=== PATIENT | male | born 1945 | race Caucasian/White ===

== ENCOUNTER 2017-05-22 09:27 | Emergency (ER) | payer BC ==
[~2017-05-22] VITALS: Ht 177.8 cm; Wt 77.0 kg
[~2017-05-22 09:27] MED LIST: ASPCH81X PO; ATEN-175 PO; CIPR-255 PO; MAGN400T6 PO; OMEG10007 PO
[2017-05-22 09:36] VITALS: TEMP 36.7
[2017-05-22 09:39] VITALS: Ht 177.8 cm; Wt 77.0 kg
[2017-05-22 09:43] VITALS: O2SAT 96
--- NOTE | 2017-05-22 09:43 | EMERGENCY ROOM VISIT NOTE ---
History Report prepared by Hina: Brown Velasquez Under the Supervision of: Dr. Elian Reed D.O. First contact with patient: 09:31 Chief Complaint: LEG PAIN,LEG INJURY Stated Complaint: LEG PAIN History of Present Illness The patient is a 71 year old male who presents to the Emergency Room with complaints of worsening weakness to all four extremities that has been progressing downward for the past 1 year. He states that he has been having "issues" since he fell out of a box truck 7 years ago landing on his face. He has seen multiple surgeons and received multiple tests and scans. He has never been able to find the source of his symptoms. He states that he has a pain from his right druze down into his neck. He also has been having vision blurring, lower extremity numbness, and has been feeling off balance. He notes that his ears are causing him pain as well. He denies any recent falls or injury. He denies any headaches, nausea, vomiting, or rashes. He only takes Atenolol daily. Source of History: patient Onset: 1 year ago Position: other (All four extremities) Symptom Intensity: moderate Quality: other (Generalized weakness) Timing: worsening Associated Symptoms: + numbness, No headache, No nausea, No vomiting Note: He is off balance and is experiencing vision blurring. He denies any trauma or injury. Review of Systems See HPI for pertinent positives & negatives. A total of 10 systems reviewed and were otherwise negative. Past Medical & Surgical Medical Problems: (1) HTN (hypertension) Social History Smoking Status: Current Every Day Smoker Smokeless Tobacco Use: No Drug Use: none Marital Status: Housing Status: lives with significant other Occupation Status: retired Current/Historical Medications Scheduled Aspirin (Aspirin Chewable), 81 MG PO DAILY Atenolol (Tenormin), 100 MG PO DAILY Fish Oil ([place]-3), 1 CAP PO DAILY Magnesium Oxide (Mag-Ox), 400 MG PO DAILY Allergies Coded Allergies: Diazepam (Verified Allergy, Mild, LIGHTHEADED, DIZZY, 05/22/17) Physical Exam Vital Signs Date Time Temp Pulse Resp B/P (MAP) Pulse Ox O2 Delivery O2 Flow Rate FiO2 05/22/17 13:07 62 14 148/78 94 05/22/17 12:56 62 14 148/78 94 Room Air 05/22/17 10:56 73 17 164/83 96 Room Air 05/22/17 09:47 81 05/22/17 09:43 96 Room Air 05/22/17 09:43 96 Room Air 05/22/17 09:36 36.7 83 20 185/90 96 Room Air Physical Exam GENERAL: Patient is awake, alert, and in no acute distress. Patient is resting comfortably and showing no signs of anxiety EYES: The conjunctivae are clear. The pupils are round and reactive. EARS, NOSE, MOUTH AND THROAT: TM's clear bilaterally. The nose is without any evidence of any deformity. Mucous membranes are moist tongue is midline NECK: The neck is nontender and supple. No bruits notes to auscultation. RESPIRATORY: Normal respiratory effort is noted there is no evidence of wheezing rhonchi or rales CARDIOVASCULAR: Regular rate and rhythm noted there no murmurs rubs or gallops normal S1 normal S2 GASTROINTESTINAL: The abdomen is soft. Bowel sounds are present in all quadrants. Abdomen is nontender MUSCULOSKELETAL/EXTREMITIES: There is no evidence of gross deformity full range of motion is noted in the hips and shoulders SKIN: There is no obvious evidence of any rash. There are no petechiae, pallor or cyanosis noted. NEUROLOGIC: Patient is awake alert and oriented x3 strength is symmetric patellar reflexes are 2+ bilaterally Medical Decision & Procedures ER Provider Diagnostic Interpretation: Radiology results as stated below per my review and radiologist interpretation: ANGIOGRAPHY HEAD COMBO CLINICAL HISTORY: 71 years-old Male presenting with right-sided headache, right-sided neck pain, leg pain. TECHNIQUE: Multidetector CT angiography of the head was performed before and after the administration of intravenous contrast. 3-D volumetric and/or maximum intensity projection (MIP) images were subsequently reconstructed for review. IV contrast: 120 mL of Optiray 320. A dose lowering technique was used consistent with the principles of ALARA (as low as reasonably achievable). COMPARISON: CT head from 03/03/2011. CT DOSE (mGy.cm): The estimated cumulative dose is 1204.63 inclusive of the CTA neck. FINDINGS: School Supervisor topogram: Unremarkable. NONCONTRAST CT HEAD: Proportional ventricular and sulcal prominence, likely age-related parenchymal volume loss. Old infarct in the right occipital lobe, unchanged. No mass effect or midline shift. No hemorrhage or acute territorial infarct. Chronic extra-axial thickening at the anterior pole of the left temporal lobe. No commencing evidence of new extra-axial collection. Right mastoidectomy noted. Calvarium intact. CTA HEAD: Atherosclerosis of the bilateral cavernous segments of the internal carotid arteries, which results in less than 50% stenosis, greater on the left. 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 Bilateral anterior and middle cerebral arteries patent. Hypoplastic A1 segment of the left anterior cerebral artery. Posterior circulation demonstrates a right dominant vertebral artery. Both vertebral arteries contribute to the basilar artery, which is patent. Bilateral posterior inferior cerebellar, superior cerebellar, and posterior cerebral arteries patent. Hypoplastic right posterior communicating artery. Left posterior communicating artery patent. Dural venous sinuses grossly patent. IMPRESSION: 1. No acute intracranial abnormality. 2. Atherosclerosis with less than 50% stenosis of the cavernous segments of the ICAs. 3. 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 4. Please see separately dictated CTA of the neck. Electronically signed by: Tyson Choudhary M.D. 05/22/2017 11:10 AM Dictated Date/Time: 05/22/2017 10:59 AM CHEST ONE VIEW PORTABLE CLINICAL HISTORY: Altered mental status and weakness COMPARISON STUDY: 05/03/2014 FINDINGS: The cardiac and mediastinal contours are normal. There is no evidence of focal pulmonary consolidation. There is no evidence of failure. No pleural effusions are visualized.[ IMPRESSION: No active disease in the chest. Electronically signed by: Marcin Russ M.D. 05/22/2017 10:03 AM Dictated Date/Time: 05/22/2017 10:[address] NECK ANGIO WITH CONTRAST CLINICAL HISTORY: Right-sided neck pain. Right-sided headache. COMPARISON STUDY: No previous studies for comparison. TECHNIQUE: CT angiography was performed from the aortic arch to the skull base. MIP imaging was performed. The patient was scanned in a dynamic helical fashion during intravenous administration of cc of Optiray 320. A dose lowering technique was utilized adhering to the principles of ALARA. CT DOSE: 1204.63 mGy.cm Technique: CT angiogram of the carotid and vertebral arteries was obtained using intravenous contrast and 3-D reconstruction. NASCET criteria was utilized. MIP imaging was performed. Findings: There are mild emphysematous changes at the lung apices with biapical blebs. There is a 16 mm cystic mass within the right oropharynx abutting the superior margin the epiglottis. ENT consultation for direct visualization should be considered in follow-up. There are moderate atheromatous changes involving the aortic arch. There are moderate atheromatous changes involving the proximal right innominate artery There are extensive atheromatous changes at the level the right carotid bulb. This results in a 25% diameter stenosis. There is a small ulcerated plaque. There are mild atheromatous changes involving the left carotid bulb. There is a 20% diameter stenosis. There is a distal right vertebral artery stenosis, and distal left vertebral artery occlusion. IMPRESSION: 1. 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 Atheromatous changes involving both carotid bulbs with an ulcerated plaque on the right. No evidence of hemodynamically significant carotid stenosis 3. Distal right vertebral artery stenosis, and distal left vertebral artery occlusion with reconstitution. 4. 16 mm cystic lesion within the right oropharynx abutting the superior margin of the epiglottis. Electronically signed by: Marcin Russ M.D. 05/22/2017 11:18 AM Dictated Date/Time: 05/22/2017 11:07 AM Laboratory Results 05/22/17 09:55 Red Blood Count 4.63, Mean Corpuscular Volume 95.2, Mean Corpuscular Hemoglobin 32.4, Mean Corpuscular Hemoglobin Concent 34.0, Mean Platelet Volume 10.5, Neutrophils (%) (Auto) 68.3, Lymphocytes (%) (Auto) 22.1, Monocytes (%) (Auto) 7.9, Eosinophils (%) (Auto) 1.4, Basophils (%) (Auto) 0.2, Neutrophils # (Auto) 6.88, Lymphocytes # (Auto) 2.22, Monocytes # (Auto) 0.79, Eosinophils # (Auto) 0.14, Basophils # (Auto) 0.02 05/22/17 09:55 Test 05/22/17 09:55 05/22/17 10:00 White Blood Count 10.06 K/uL (4.8-10.8) Red Blood Count 4.63 M/uL (4.7-6.1) Hemoglobin 15.0 g/dL (14.0-18.0) Hematocrit 44.1 % (42-52) Mean Corpuscular Volume 95.2 fL (80-100) Mean Corpuscular Hemoglobin 32.4 pg (25-34) Mean Corpuscular Hemoglobin Concent 34.0 g/dl (32-36) Platelet Count 335 K/uL (130-400) Mean Platelet Volume 10.5 fL (7.4-10.4) Neutrophils (%) (Auto) 68.3 % Lymphocytes (%) (Auto) 22.1 % Monocytes (%) (Auto) 7.9 % Eosinophils (%) (Auto) 1.4 % Basophils (%) (Auto) 0.2 % Neutrophils # (Auto) 6.88 K/uL (1.4-6.5) Lymphocytes # (Auto) 2.22 K/uL (1.2-3.4) Monocytes # (Auto) 0.79 K/uL (0.11-0.59) Eosinophils # (Auto) 0.14 K/uL (0-0.5) Basophils # (Auto) 0.02 K/uL (0-0.2) RDW Standard Deviation 48.0 fL (36.4-46.3) RDW Coefficient of Variation 13.8 % (11.5-14.5) Immature Granulocyte % (Auto) 0.1 % Immature Granulocyte # (Auto) 0.01 K/uL (0.00-0.02) Erythrocyte Sedimentation Rate 35 mm/hr (0-14) Prothrombin Time 10.2 SECONDS (9.0-12.0) Prothromb Time International Ratio 1.0 (0.9-1.1) Activated Partial Thromboplast Time 28.9 SECONDS (21.0-31.0) Partial Thromboplastin Ratio 1.1 Est Creatinine Clear Calc Drug Dose 55.6 ml/min Estimated GFR () 66.9 Estimated GFR (Non- 57.7 BUN/Creatinine Ratio 18.9 (10-20) Calcium Level 9.7 mg/dl (8.5-10.1) Magnesium Level 2.3 mg/dl (1.8-2.4) Total Bilirubin 0.4 mg/dl (0.2-1) Direct Bilirubin < 0.1 mg/dl (0-0.2) Aspartate Amino Transf (AST/SGOT) 15 U/L (15-37) Alanine Aminotransferase (ALT/SGPT) 27 U/L (12-78) Alkaline Phosphatase 85 U/L (45-117) Troponin I < 0.015 ng/ml (0-0.045) C-Reactive Protein < 0.29 mg/dl (0-0.29) Total Protein 8.0 gm/dl (6.4-8.2) Albumin 4.0 gm/dl (3.4-5.0) Thyroid Stimulating Hormone (TSH) 0.833 uIu/ml (0.300-4.500) Bedside Hemoglobin 16.0 g/dl (14.0-18.0) Bedside Hematocrit 47 % (42-52) Urine Color DK YELLOW Urine Appearance CLEAR (CLEAR) Urine pH 5.0 (4.5-7.5) Urine Specific [place] 1.025 (1.000-1.030) Urine Protein NEG (NEG) Urine Glucose (UA) NEG (NEG) Urine Ketones TRACE (NEG) Urine Occult Blood NEG (NEG) Urine Nitrite NEG (NEG) Urine Bilirubin NEG (NEG) Urine Urobilinogen NEG (NEG) Urine Leukocyte Esterase NEG (NEG) Bedside Sodium 139 mEq/L (135-144) Bedside Potassium 4.0 mEq/L (3.3-5.0) Bedside Chloride 100 mEq/L (101-112) Bedside Total CO2 27 mEq/l (24-31) Anion Gap 17.0 mmol/L (16-25) Bedside Blood Urea Nitrogen 25 mg/dl (7-18) Bedside Creatinine 1.1 mg/dl (0.6-1.3) Bedside Glucose (other) 119 mg/dl (70-99) Bedside Ionized Calcium ([place]) 1.26 mmol/l (1.12-1.32) Laboratory results per my review. ECG Indication: weakness Rate (beats per minute): 78 Rhythm: normal sinus Findings: Q waves (Inferior), no ectopy Comparison ECG Date: 05/03/14 Change: no significant change ED Course 0931: The patient was evaluated in room A11B. A complete history and physical examination were performed. 1200: I spoke with Dr. Gregory of Neurology at this time. We reviewed the patient 's CTA's. He recommends continued antiplatelet therapy. 1230: Upon reevaluation, the patient is resting. I discussed the results and treatment plan with him. He verbalized agreement of the treatment plan. He was discharged home. Medical Decision Differential diagnosis: Etiologies such as metabolic, infection, hypo/hyperglycemia, electrolyte abnormalities, cardiac sources, intracerebral event, toxicologic, neurologic, as well as others were entertained. Nursing notes reviewed. Additional history is obtained from the patient's significant other. The patient's previous electronic medical records reviewed. The patient is a 71-year-old male who presented to the emergency department with his significant other with a complaint of right-sided facial pain. Certainly the patient had multiple complaints and the chronicity of these complaints varied from months to years. The patient did not have any focal neurologic deficits. He did not have any pain over the carotid artery or over the temporal artery. The patient did not have any focal neurologic deficit. The patient mostly complained of right-sided facial pain and somewhat of a headache. The patient was reevaluated multiple times. I discussed patient's laboratory and radiographic studies with him. When he first presented to the emergency department my feeling was that a vascular abnormality or possibly a stroke would be the appropriate workup. The patient did not appear to have any acute vascular abnormalities although he did have significant findings on his CTs. He had a questionable ENT abnormality noted on CT of the neck with angiography. I discussed this with the patient. He was instructed to follow-up with his primary care physician for ENT referral. I do not feel that this explains the patient's presentation today. The patient had abnormalities noted on his vasculature which I discussed with him. I discussed his findings with the on-call neurologist. At this time I've instructed the patient to increase his dose of aspirin in the morning. He has a follow-up appointment with vascular surgery. He was encouraged to keep this appointment. He was also encouraged to call his primary care physician as well as his primary neurologist to schedule follow-up appointment. He was also encouraged to return to the emergency department immediately if symptoms change worsen or the need arises. Medication Reconcilliation Current Medication List: was personally reviewed by me Blood Pressure Screening Patient's blood pressure: Elevated blood pressure Blood pressure disposition: Referred to PCP Consults Time Called: 1155 Consulting Physician: Dr. Bri Jeffery Returned Call: 1200 We discussed the patient's case. We reviewed the CTA's as well. He recommends continued antiplatelet therapy. Impression Primary Impression: Headache Additional Impression: Right sided facial pain Scribe Attestation The scribe's documentation has been prepared under my direction and personally reviewed by me in its entirety. I confirm that the note above accurately reflects all work, treatment, procedures, and medical decision making performed by me. Departure Information Dispostion Home / Self-Care Referrals Dalton Ellington M.D. (PCP) Francois Gregory M.D. (MEDICINE) Jackson Alejandra M.D. Forms HOME CARE DOCUMENTATION FORM, IMPORTANT VISIT INFORMATION, WORK / SCHOOL INSTRUCTIONS Patient Instructions Angiography Carotid, My [facility] Additional Instructions Follow-up with your vascular specialist as scheduled. Call your family DrSherwin to schedule a follow-up with appointment. You may require a referral to an ear nose and throat physician. Continue all medications as prescribed. Increase your aspirin. Start taking 2 baby aspirin every morning. Return to the emergency apartment immediately if symptoms change worsen or the need arises. Problem Qualifiers Primary Impression: Headache Headache type: unspecified Headache chronicity pattern: chronic headache Intractability: not intractable Qualified Codes: R51 - Headache
[2017-05-22] MEDS ORDERED: OPTIRAY 320 IV PRN (10:00)
--- NOTE | 2017-05-22 10:04 | DIAGNOSTIC IMAGING REPORT ---
CHEST ONE VIEW PORTABLE CLINICAL HISTORY: Altered mental status and weakness COMPARISON STUDY: 05/03/2014 FINDINGS: The cardiac and mediastinal contours are normal. There is no evidence of focal pulmonary consolidation. There is no evidence of failure. No pleural effusions are visualized.[ IMPRESSION: No active disease in the chest. Electronically signed by: Marcin Russ M.D. 05/22/2017 10:03 AM Dictated Date/Time: 05/22/2017 10:02 AM
[2017-05-22 10:05] LABS: BASO % 0.2 %; BASO ABS # 0.02 K/uL (0-0.2); COMPLETE YES; EOS % 1.4 %; HEMATOCRIT 44.1 % (42-52); IG% 0.1 %; LYMPH % 22.1 %; LYMPH ABS # 2.22 K/uL (1.2-3.4); MEAN CELL VOLUME 95.2 fL (80-100); MEAN CORPUSCULAR HEMOGLOBIN 32.4 pg (25-34); MEAN PLATELET VOLUME 10.5 fL (7.4-10.4); MONO % 7.9 %; NEUT % 68.3 %; PLATELET COUNT 335 K/uL (130-400); RED BLOOD COUNT 4.63 M/uL (4.7-6.1); WHITE BLOOD COUNT 10.06 K/uL (4.8-10.8)
[2017-05-22 10:14] LABS: URINE APPEARANCE CLEAR (CLEAR); URINE BILIRUBIN NEG (NEG); URINE COLOR DK YELLOW; URINE NITRITE NEG (NEG); URINE SPECIFIC GRAVITY 1.025 (1.000-1.030); UROBILINOGEN NEG (NEG)
[2017-05-22 10:15] LABS: REVIEW REQ? NO
[2017-05-22 10:16] LABS: MANUAL MICROSCOPIC REQUIRED? NO
[2017-05-22 10:17] LABS: PARTIAL THROMBOPLASTIN RATIO 1.1; PROTHROMBIN TIME (PATIENT) 10.2 SECONDS (9.0-12.0)
[2017-05-22 10:23] LABS: ALT/SGPT 27 U/L (12-78); BLOOD UREA NITROGEN 23 mg/dl (7-18); BUN/CREATININE RATIO 18.9 (10-20); C-REACTIVE PROTEIN < 0.29 mg/dl (0-0.29); CALCIUM 9.7 mg/dl (8.5-10.1); CARBON DIOXIDE 29 mmol/L (21-32); CHLORIDE 102 mmol/L (98-107); CREATININE 1.24 mg/dl (0.60-1.40); GLUCOSE 115 mg/dl (70-99); MAGNESIUM 2.3 mg/dl (1.8-2.4); SODIUM 137 mmol/L (136-145)
[2017-05-22 10:32] LABS: ALKALINE PHOSPHATASE 85 U/L (45-117); AST/SGOT 15 U/L (15-37); THYROID STIMULATING HORMONE 0.833 uIu/ml (0.300-4.500)
--- NOTE | 2017-05-22 11:12 | DIAGNOSTIC IMAGING REPORT ---
ANGIOGRAPHY HEAD COMBO CLINICAL HISTORY: 71 years-old Male presenting with right-sided headache, right-sided neck pain, leg pain. TECHNIQUE: Multidetector CT angiography of the head was performed before and after the administration of intravenous contrast. 3-D volumetric and/or maximum intensity projection (MIP) images were subsequently reconstructed for review. IV contrast: 120 mL of Optiray 320. A dose lowering technique was used consistent with the principles of ALARA (as low as reasonably achievable). COMPARISON: CT head from 03/03/2011. CT DOSE (mGy.cm): The estimated cumulative dose is 1204.63 inclusive of the CTA neck. FINDINGS: [employer] Agent topogram: Unremarkable. NONCONTRAST CT HEAD: Proportional ventricular and sulcal prominence, likely age-related parenchymal volume loss. Old infarct in the right occipital lobe, unchanged. No mass effect or midline shift. No hemorrhage or acute territorial infarct. Chronic extra-axial thickening at the anterior pole of the left temporal lobe. No commencing evidence of new extra-axial collection. Right mastoidectomy noted. Calvarium intact. CTA HEAD: Atherosclerosis of the bilateral cavernous segments of the internal carotid arteries, which results in less than 50% stenosis, greater on the left. 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 Bilateral anterior and middle cerebral arteries patent. Hypoplastic A1 segment of the left anterior cerebral artery. Posterior circulation demonstrates a right dominant vertebral artery. Both vertebral arteries contribute to the basilar artery, which is patent. Bilateral posterior inferior cerebellar, superior cerebellar, and posterior cerebral arteries patent. Hypoplastic right posterior communicating artery. Left posterior communicating artery patent. Dural venous sinuses grossly patent. IMPRESSION: 1. No acute intracranial abnormality. 2. Atherosclerosis with less than 50% stenosis of the cavernous segments of the ICAs. 3. 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 4. Please see separately dictated CTA of the neck. Electronically signed by: Tyson Choudhary M.D. 05/22/2017 11:10 AM Dictated Date/Time: 05/22/2017 10:59 AM
--- NOTE | 2017-05-22 11:19 | DIAGNOSTIC IMAGING REPORT ---
CT NECK ANGIO WITH CONTRAST CLINICAL HISTORY: Right-sided neck pain. Right-sided headache. COMPARISON STUDY: No previous studies for comparison. TECHNIQUE: CT angiography was performed from the aortic arch to the skull base. MIP imaging was performed. The patient was scanned in a dynamic helical fashion during intravenous administration of cc of Optiray 320. A dose lowering technique was utilized adhering to the principles of ALARA. CT DOSE: 1204.63 mGy.cm Technique: CT angiogram of the carotid and vertebral arteries was obtained using intravenous contrast and 3-D reconstruction. NASCET criteria was utilized. MIP imaging was performed. Findings: There are mild emphysematous changes at the lung apices with biapical blebs. There is a 16 mm cystic mass within the right oropharynx abutting the superior margin the epiglottis. ENT consultation for direct visualization should be considered in follow-up. There are moderate atheromatous changes involving the aortic arch. There are moderate atheromatous changes involving the proximal right innominate artery There are extensive atheromatous changes at the level the right carotid bulb. This results in a 25% diameter stenosis. There is a small ulcerated plaque. There are mild atheromatous changes involving the left carotid bulb. There is a 20% diameter stenosis. There is a distal right vertebral artery stenosis, and distal left vertebral artery occlusion. IMPRESSION: 1. 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 Atheromatous changes involving both carotid bulbs with an ulcerated plaque on the right. No evidence of hemodynamically significant carotid stenosis 3. Distal right vertebral artery stenosis, and distal left vertebral artery occlusion with reconstitution. 4. 16 mm cystic lesion within the right oropharynx abutting the superior margin of the epiglottis. Electronically signed by: Marcin Russ M.D. 05/22/2017 11:18 AM Dictated Date/Time: 05/22/2017 11:07 AM
[2017-05-22 13:07] VITALS: BP 148/78; PULSE 62; O2SAT 94
[2017-05-23 04:41] LABS: ISTAT CREATININE 1.1 mg/dl (0.6-1.3); ISTAT IONIZED CALCIUM 1.26 mmol/l (1.12-1.32)
== END 2017-05-22 13:08 | disposition home or self-care (01) ==
LOC: C.EDB 09:31 → C.EDA 13:08
DX: R51 Headache (principal); Z91.81 History of falling; I10 Essential (primary) hypertension; F17.200 Nicotine dependence, unspecified, uncomplicated; Z79.82 Long term (current) use of aspirin; Z79.899 Other long term (current) drug therapy